=== PATIENT | male | born 1945 | race Caucasian/White ===

== ENCOUNTER → 2016-11-20 | Outpatient (CLI) | payer MEDICARE ==
[~2016-11-20] MED LIST: ALLO100T PO; AMIO400T2 PO; ASPI325T PO; D 10CHW OR; DOCU1CAP39 PO; FISH1000 PO; ISOS30 PO; NITR.3 SL; NPH INSULIN SC; PROT40IN PO; SYNT25TA PO; TORS20TA PO
[2016-11-20 16:17] LABS: INTERNATIONAL NORMALIZED RATIO 2.3 RATIO; PROTHROMBIN TIME - PATIENT 26.5 SEC (9.8-11.6)
== END ==
LOC: CLAB 15:27
DX: I25.5 Ischemic cardiomyopathy (principal); I50.9 Heart failure, unspecified; E11.9 Type 2 diabetes mellitus without complications; G93.3 Postviral and related fatigue syndromes; M10.9 Gout, unspecified; E78.4 Other hyperlipidemia; E03.9 Hypothyroidism, unspecified; E66.9 Obesity, unspecified; M81.0 Age-related osteoporosis without current pathological fracture; D12.0 Benign neoplasm of cecum; N18.9 Chronic kidney disease, unspecified; I47.2 Ventricular tachycardia; Z95.811 Presence of heart assist device; Z95.810 Presence of automatic (implantable) cardiac defibrillator; Z95.0 Presence of cardiac pacemaker
CPT/HCPCS: 36415; 85610

== ENCOUNTER → 2017-02-27 | Outpatient (CLI) | payer MEDICARE | LOC: CLAB 10:29 | PROVIDERS: ATTEND Family Medicine | DX: I50.9 Heart failure, unspecified (principal); I25.5 Ischemic cardiomyopathy; J96.90 Respiratory failure, unspecified, unspecified whether with hypoxia or hypercapnia; R53.83 Other fatigue; M10.9 Gout, unspecified; E78.5 Hyperlipidemia, unspecified; E66.9 Obesity, unspecified; M81.0 Age-related osteoporosis without current pathological fracture; R78.81 Bacteremia; B95.4 Other streptococcus as the cause of diseases classified elsewhere; D12.6 Benign neoplasm of colon, unspecified; N18.9 Chronic kidney disease, unspecified; E11.22 Type 2 diabetes mellitus with diabetic chronic kidney disease; I47.2 Ventricular tachycardia; T50.905A Adverse effect of unspecified drugs, medicaments and biological substances, initial encounter; Z95.810 Presence of automatic (implantable) cardiac defibrillator | CPT/HCPCS: 36415; 87040; 87186; 87205 ==

== ENCOUNTER → 2017-04-05 | Outpatient (CLI) | payer MEDICARE ==
[2017-04-05 11:20] LABS: INTERNATIONAL NORMALIZED RATIO 4.4 RATIO; PROTHROMBIN TIME - PATIENT 51.5 SEC (9.8-11.6)
== END ==
LOC: CLAB 10:46
DX: I50.9 Heart failure, unspecified (principal); E78.4 Other hyperlipidemia; E03.9 Hypothyroidism, unspecified; M81.0 Age-related osteoporosis without current pathological fracture; D12.0 Benign neoplasm of cecum; T50.905A Adverse effect of unspecified drugs, medicaments and biological substances, initial encounter; N18.9 Chronic kidney disease, unspecified; E11.22 Type 2 diabetes mellitus with diabetic chronic kidney disease; I47.2 Ventricular tachycardia; K21.9 Gastro-esophageal reflux disease without esophagitis; I25.5 Ischemic cardiomyopathy; M10.9 Gout, unspecified; G93.3 Postviral and related fatigue syndromes; J96.90 Respiratory failure, unspecified, unspecified whether with hypoxia or hypercapnia; E66.9 Obesity, unspecified; Z95.810 Presence of automatic (implantable) cardiac defibrillator; Z95.0 Presence of cardiac pacemaker
CPT/HCPCS: 36415; 85610

== ENCOUNTER → 2017-05-16 | Outpatient (CLI) | payer MEDICARE ==
[2017-05-16 16:52] LABS: AUTOMATED NEUTROPHIL # 4.6 TH/MM3 (1.8-7.7); BASOPHIL % 0.7 % (0.0-2.0); EOSINOPHIL # 0.2 TH/MM3 (0-0.4); EOSINOPHIL % 3.8 % (0.0-4.0); HEMATOCRIT 39.7 % (39.0-51.0); HEMO FLAGS DIFF FINAL; LYMPH % 12.9 % (9.0-44.0); LYMPHOCYTE # 0.8 TH/MM3 (1.0-4.8); MEAN CELL VOLUME 86.5 FL (80.0-100.0); MEAN CORPUSCULAR HEMOGLOBIN 28.3 PG (27.0-34.0); MEAN CORPUSCULAR HGB CONC 32.7 % (32.0-36.0); MONO % 10.4 % (0.0-8.0); NEUT % 72.2 % (16.0-70.0); PLATELET COUNT 182 TH/MM3 (150-450); RED BLOOD COUNT 4.59 MIL/MM3 (4.50-5.90); RED CELL DISTRIBUTION WIDTH 16.3 % (11.6-17.2); WHITE BLOOD COUNT 6.4 TH/MM3 (4.0-11.0)
[2017-05-16 16:59] LABS: BICARBONATE 29.3 MEQ/L (21.0-32.0); MAGNESIUM 2.2 MG/DL (1.5-2.5); POTASSIUM 4.5 MEQ/L (3.5-5.1)
[2017-05-16 17:02] LABS: INDIRECT BILIRUBIN 0.6 MG/DL (0.0-0.8); TOTAL BILIRUBIN ADULT 0.7 MG/DL (0.2-1.0)
[2017-05-16 17:33] LABS: INTERNATIONAL NORMALIZED RATIO 1.6 RATIO; PROTHROMBIN TIME - PATIENT 18.5 SEC (9.8-11.6)
== END ==
LOC: CLAB 15:54
DX: R53.83 Other fatigue (principal); I25.9 Chronic ischemic heart disease, unspecified; I50.9 Heart failure, unspecified; N18.9 Chronic kidney disease, unspecified; E11.22 Type 2 diabetes mellitus with diabetic chronic kidney disease; J96.00 Acute respiratory failure, unspecified whether with hypoxia or hypercapnia; M10.00 Idiopathic gout, unspecified site; E78.5 Hyperlipidemia, unspecified; E03.9 Hypothyroidism, unspecified; M81.0 Age-related osteoporosis without current pathological fracture; K63.5 Polyp of colon; T50.905A Adverse effect of unspecified drugs, medicaments and biological substances, initial encounter; I47.2 Ventricular tachycardia; E66.9 Obesity, unspecified; Z95.810 Presence of automatic (implantable) cardiac defibrillator
CPT/HCPCS: 36415; 80051; 80076; 82565; 83615; 83735; 83880; 84520; 85025; 85610

== ENCOUNTER → 2017-10-22 | Outpatient (CLI) | payer MEDICARE ==
[2017-10-22 12:36] LABS: BICARBONATE 26.4 MEQ/L (21.0-32.0); POTASSIUM 5.1 MEQ/L (3.5-5.1)
== END ==
LOC: CLAB 11:41
DX: I47.2 Ventricular tachycardia (principal); N18.9 Chronic kidney disease, unspecified; T50.905A Adverse effect of unspecified drugs, medicaments and biological substances, initial encounter; D12.0 Benign neoplasm of cecum; Z95.0 Presence of cardiac pacemaker; M81.0 Age-related osteoporosis without current pathological fracture; E66.9 Obesity, unspecified; Z95.810 Presence of automatic (implantable) cardiac defibrillator; E03.9 Hypothyroidism, unspecified; G93.3 Postviral and related fatigue syndromes; R53.1 Weakness; R53.81 Other malaise; J96.00 Acute respiratory failure, unspecified whether with hypoxia or hypercapnia; E11.9 Type 2 diabetes mellitus without complications; I50.9 Heart failure, unspecified; I25.5 Ischemic cardiomyopathy; Z95.811 Presence of heart assist device
CPT/HCPCS: 36415; 80048